=== PATIENT | male | born 1945 | race Two or more races ===

== ENCOUNTER 2022-10-03 23:55 | Inpatient (IN) | payer MEDICARE, MEDICAID ==
[~2022-10-03] VITALS: Ht 170.2 cm; Wt 64.6 kg
[~2022-10-03 23:55] MED LIST: ASPI-543 PO; ATROVASTIN PO; DONE1TAB88 PO; MET50T PO; POTA-220 PO; RANI-226 PO; SODIUM BICARB PO; TAMS0.4C36 PO
[2022-10-04 00:25] VITALS: PULSE 68; RESP 16; O2SAT 98
[2022-10-04 01:41] LABS: Basophils # (auto) 0 10 ^3/uL (0-0.2); Basophils % (auto) 0.2 % (0.0-2.0); Eosinophils # (auto) 0 10 ^3/uL (0-0.8); Eosinophils % (auto) 0.2 % (0.0-7.0); Hemoglobin 14.1 g/dL (13.5-17.5); Lymphocytes # (auto) 0.7 10 ^3/uL (0.4-5.4); Lymphocytes % (auto) 4.7 % (10.0-50.0); Mean Corpuscular Hemoglobin 29.9 pg (28.0-32.0); Mean Corpuscular Hgb Conc. 32.8 g/dL (32.0-36.0); Mean Corpuscular Volume 91.2 fL (80.0-100.0); Monocytes % (auto) 6.7 % (0.0-12.0); Neutrophils # (auto) 12.8 10 ^3/uL (1.6-8.6); Neutrophils % (auto) 88.2 % (37.0-80.0); Red Blood Cells 4.72 10^6/uL (4.5-5.90); Red Cell Distribution Width 15.2 % (11.8-14.3); White Blood Cell 14.5 10^3/uL (4.4-10.8)
[2022-10-04 02:07] LABS: Lactic Acid w/Reflex 3.3 mmol/L (0.4-2.0)
[2022-10-04] MEDS ORDERED: HALOPERIDOL LACTATE 5 MG/ML INJ VIAL ONE (02:55)
[2022-10-04] MEDS ORDERED: diphenhdrAMINE HCL 50 MG/1 ML VL ONE (02:55)
[2022-10-04 02:56] LABS: Alanine Aminotransferase 17 U/L (7-40); Albumin 4.5 g/dL (3.2-4.8); Alkaline Phosphatase 162 U/L (46-116); Anion Gap 13.4 (5-15); Aspartate Aminotransferase 14 U/L (13-40); BUN/Creatinine Ratio 13.8 (10.0-20.0); Blood Urea Nitrogen 16 mg/dL (9-23); Calcium 9.4 mg/dL (8.7-10.4); Carbon Dioxide 21.6 mmol/L (20-30); Chloride 109 mmol/L (98-107); Glucose 161 mg/dL (74-106); Sodium 144 mmol/L (136-145)
[2022-10-04 02:57] LABS: Bilirubin, Total 0.4 mg/dL (0.2-1.0)
[2022-10-04] MEDS ORDERED: HALOPERIDOL LACTATE 5 MG/ML INJ VIAL IM ONE (03:15)
[2022-10-04] MEDS ORDERED: diphenhdrAMINE HCL 50 MG/1 ML VL IV ONE (03:15)
[2022-10-04] MEDS ORDERED: LACTATED RINGER'S 2,300 ML IV ONE ×2 (03:30→05:45)
[2022-10-04] MEDS ORDERED: PIPERACILLIN-TAZOB 3.375GM 100 ML IV ONE (03:30)
[2022-10-04] MEDS ORDERED: VANCOMYCIN 1GM/250ML 250 ML IV ONE (03:30)
[2022-10-04] MEDS ORDERED: ONDANSETRON HCL 4 MG/2 ML VIAL IV PRN (05:30)
[2022-10-04] MEDS ORDERED: LORazepam 2MG/ML-1ML VIAL IV PRN (05:30)
[2022-10-04] MEDS ORDERED: MORPHINE SULFATE INJ 2 MG/ml SYRG IV PRN (05:30)
[2022-10-04] MEDS ORDERED: ACETAMINOPHEN 325 MG TAB PO PRN (05:30)
[2022-10-04] MEDS ORDERED: NITROGLYCERIN 0.4 MG SL TAB SL PRN (05:30)
[2022-10-04 07:04] LABS: Urine Bacteria NONE SEEN /hpf (None Seen); Urine Blood Negative /uL (Negative); Urine Clarity Clear (Clear); Urine Color Yellow (Yellow); Urine Protein, UAD TRACE (Negative); Urine Specific Gravity 1.018 (1.001-1.035); Urine Urobilinogen Normal (Negative); Urine WBC 1 /hpf (0 - 3); Urine pH 5.5 (5.0-8.0)
[2022-10-04 07:35] VITALS: PULSE 81; RESP 12; O2SAT 98
[2022-10-04] MEDS: cefTRIAXone 1GM/50ML D5W 50 ML IV SCH (09:38)
[2022-10-04] MEDS ORDERED: LISINOPRIL 5 MG TAB PO SCH (10:00)
[2022-10-04] MEDS ORDERED: METOPROLOL TARTRATE 25 MG TAB PO SCH (10:00)
[2022-10-04] MEDS: MEMANTINE HCL 5 MG TAB PO SCH ×2 (10:11→22:27)
[2022-10-04] MEDS: ENOXAPARIN SOD 40 MG/0.4 ML SYRINGE SC SCH (10:12)
[2022-10-04] MEDS: hydrALAZINE HCL 20 MG/ML VL IV PRN (12:49)
[2022-10-04] MEDS: LISINOPRIL 20 MG TAB PO SCH (13:26)
[2022-10-04] MEDS: metroNIDAZOLE 500MG/100ML 100 ML IV SCH ×2 (14:11→22:27)
[2022-10-04] MEDS ORDERED: HYDROcodone-ACET 5/325MG TAB PO PRN (14:30)
[2022-10-04] MEDS ORDERED: LABETALOL HCL 5 MG/ML 4ML SYRINGE IV PRN (14:30)
[2022-10-04] MEDS: MORPHINE SULFATE INJ 2 MG/ml SYRG IV PRN ×2 (14:37→15:05)
[2022-10-04 17:34] LABS: Folate (Folic Acid) > 24.00 ng/mL (>5.38)
[2022-10-04] MEDS: TAMSULOSIN HYDROCHLORIDE 0.4 MG CAP PO SCH (18:00)
[2022-10-04 19:55] VITALS: PULSE 61; RESP 10; O2SAT 98
[2022-10-04] MEDS: METOPROLOL TARTRATE 25 MG TAB PO SCH (22:00)
[2022-10-04] MEDS: ATORVASTATIN 20 MG TAB PO SCH (22:27)
[2022-10-04] MEDS: DONEPEZIL HYDROCHLORIDE 5 MG TAB PO SCH (22:27)
[2022-10-04] MEDS: PANTOPRAZOLE 40 MG TAB PO SCH (22:31)
[2022-10-04 23:00] VITALS: BP 125/64; PULSE 55; RESP 16; TEMP 99.3; O2SAT 95
[2022-10-04] MEDS ORDERED: MEMA1TAB5 PO (23:31)
[2022-10-04] MEDS ORDERED: RIVA1DIS3 TD (23:33)
[2022-10-05] VITALS (8 sets, daily range): BP systolic 102–159; BP diastolic 51–91; PULSE 49–99; RESP 14–18; TEMP 98.2–99.3; O2SAT 95–98
[2022-10-05] MEDS: metroNIDAZOLE 500MG/100ML 100 ML IV SCH (05:18)
[2022-10-05 05:57] LABS: INR 1.09 (0.9-1.15); Prothrombin Time 11.4 sec (9.3-11.8)
[2022-10-05 06:00] LABS: Alanine Aminotransferase 17 U/L (7-40); Albumin 3.6 g/dL (3.2-4.8); Alkaline Phosphatase 128 U/L (46-116); Anion Gap 7.1 (5-15); Aspartate Aminotransferase 33 U/L (13-40); BUN/Creatinine Ratio 14.9 (10.0-20.0); Blood Urea Nitrogen 13 mg/dL (9-23); Calcium 8.6 mg/dL (8.5-10.1); Carbon Dioxide 25.9 mmol/L (20-30); Chloride 112 mmol/L (98-107); Cholesterol 132 mg/dL (< 200); Glucose 90 mg/dL (74-106); HDL Cholesterol 48 mg/dL (40-59); LDL Cholesterol 75 mg/dL (< 100); Magnesium 2.2 mg/dL (1.6-2.6); Potassium 3.8 mmol/L (3.5-5.1); Sodium 145 mmol/L (136-145); Triglycerides 62 mg/dL (< 150)
[2022-10-05 06:01] LABS: Basophils # (auto) 0 10 ^3/uL (0-0.2); Basophils % (auto) 0.2 % (0.0-2.0); Bilirubin, Total 0.7 mg/dL (0.2-1.0); Eosinophils # (auto) 0 10 ^3/uL (0-0.8); Eosinophils % (auto) 0.3 % (0.0-7.0); Hematocrit 36.9 % (41.0-53.0); Hemoglobin 12.7 g/dL (13.5-17.5); Lymphocytes % (auto) 11.7 % (10.0-50.0); Mean Corpuscular Hemoglobin 30.9 pg (28.0-32.0); Mean Corpuscular Hgb Conc. 34.5 g/dL (32.0-36.0); Mean Corpuscular Volume 89.7 fL (80.0-100.0); Monocytes # (auto) 0.7 10 ^3/uL (0-1.3); Monocytes % (auto) 8.4 % (0.0-12.0); Neutrophils # (auto) 6.7 10 ^3/uL (1.6-8.6); Neutrophils % (auto) 79.4 % (37.0-80.0); Red Blood Cells 4.12 10^6/uL (4.5-5.90); Red Cell Distribution Width 14.9 % (11.8-14.3); Total Protein 5.7 g/dL (5.7-8.2); White Blood Cell 8.5 10^3/uL (4.4-10.8)
[2022-10-05] MEDS: METOPROLOL TARTRATE 25 MG TAB PO SCH ×2 (10:00→22:08)
[2022-10-05] MEDS ORDERED: METOPROLOL TARTRATE 25 MG TAB PO SCH (10:00)
[2022-10-05] MEDS: ENOXAPARIN SOD 40 MG/0.4 ML SYRINGE SC SCH (10:53)
[2022-10-05] MEDS: cefTRIAXone 1GM/50ML D5W 50 ML IV SCH (10:53)
[2022-10-05] MEDS: MEMANTINE HCL 5 MG TAB PO SCH ×2 (10:54→22:04)
[2022-10-05] MEDS: LISINOPRIL 20 MG TAB PO SCH (10:54)
[2022-10-05] MEDS: PANTOPRAZOLE 40 MG TAB PO SCH (10:55)
[2022-10-05] MEDS ORDERED: MANNITOL FTV 25% 12.5 GM/50 ML 50 ML IV ONE (14:15)
[2022-10-05] MEDS: SODIUM CHLORIDE 0.9% 1,000 ML IV SCH (16:38)
[2022-10-05] MEDS: TAMSULOSIN HYDROCHLORIDE 0.4 MG CAP PO SCH (18:10)
[2022-10-05] MEDS: hydrALAZINE HCL 20 MG/ML VL IV PRN (18:11)
[2022-10-05] MEDS: ATORVASTATIN 20 MG TAB PO SCH (22:04)
[2022-10-05] MEDS: DONEPEZIL HYDROCHLORIDE 5 MG TAB PO SCH (22:04)
[2022-10-06] VITALS (7 sets, daily range): BP systolic 119–167; BP diastolic 56–76; PULSE 58–99; RESP 13–18; TEMP 98–98.3; O2SAT 9–99
[2022-10-06] MEDS: SODIUM CHLORIDE 0.9% 1,000 ML IV SCH ×2 (03:35→16:55)
[2022-10-06 06:39] LABS: Anion Gap 6.7 (5-15); Carbon Dioxide 24.3 mmol/L (20-30); Chloride 113 mmol/L (98-107); Potassium 3.4 mmol/L (3.5-5.1); Sodium 144 mmol/L (136-145)
[2022-10-06 06:40] LABS: Basophils # (auto) 0 10 ^3/uL (0-0.2); Basophils % (auto) 0.4 % (0.0-2.0); Calcium 8.4 mg/dL (8.5-10.1); Eosinophils # (auto) 0 10 ^3/uL (0-0.8); Eosinophils % (auto) 0.7 % (0.0-7.0); Hematocrit 36.3 % (41.0-53.0); Hemoglobin 12.3 g/dL (13.5-17.5); Lymphocytes % (auto) 16.5 % (10.0-50.0); Mean Corpuscular Hemoglobin 30.7 pg (28.0-32.0); Mean Corpuscular Volume 90.4 fL (80.0-100.0); Monocytes # (auto) 0.5 10 ^3/uL (0-1.3); Monocytes % (auto) 8.9 % (0.0-12.0); Neutrophils # (auto) 4.5 10 ^3/uL (1.6-8.6); Neutrophils % (auto) 73.5 % (37.0-80.0); Nucleated Red Blood Cells % 0.1 %; Red Blood Cells 4.02 10^6/uL (4.5-5.90); Red Cell Distribution Width 15.3 % (11.8-14.3); White Blood Cell 6.2 10^3/uL (4.4-10.8)
[2022-10-06 06:45] LABS: BUN/Creatinine Ratio 15.6 (10.0-20.0); Blood Urea Nitrogen 12 mg/dL (9-23); Glucose 97 mg/dL (74-106)
[2022-10-06] MEDS ORDERED: POTASSIUM EFFERVESENT TAB 25 MEQ PO ONE (07:00)
[2022-10-06] MEDS: cefTRIAXone 1GM/50ML D5W 50 ML IV SCH (08:37)
[2022-10-06 09:43] LABS: Amphetamine Screen, Urine Neg (NEGATIVE)
[2022-10-06 09:44] LABS: Barbiturate Scree,Urine Neg (NEGATIVE); Benzodiazephine Screen, Urine Neg (NEGATIVE); Cocaine Screen, Urine Neg (NEGATIVE); Opiate Scree,Urine Neg (NEGATIVE)
[2022-10-06 09:45] LABS: Cannabinoid Screen, Urine Neg (NEGATIVE); Phencyclidine Screen, Urine Neg (NEGATIVE)
[2022-10-06] MEDS: ENOXAPARIN SOD 40 MG/0.4 ML SYRINGE SC SCH (11:03)
[2022-10-06] MEDS: MEMANTINE HCL 5 MG TAB PO SCH ×2 (11:03→21:27)
[2022-10-06] MEDS: METOPROLOL TARTRATE 25 MG TAB PO SCH ×2 (11:04→22:43)
[2022-10-06] MEDS: LISINOPRIL 20 MG TAB PO SCH (11:04)
[2022-10-06] MEDS: PANTOPRAZOLE 40 MG TAB PO SCH (11:04)
[2022-10-06] MEDS: hydrALAZINE HCL 20 MG/ML VL IV PRN (17:15)
[2022-10-06] MEDS: TAMSULOSIN HYDROCHLORIDE 0.4 MG CAP PO SCH (17:15)
[2022-10-06] MEDS: ATORVASTATIN 20 MG TAB PO SCH (21:27)
[2022-10-06] MEDS: DONEPEZIL HYDROCHLORIDE 5 MG TAB PO SCH (21:29)
[2022-10-07] VITALS (7 sets, daily range): BP systolic 140–168; BP diastolic 70–85; PULSE 54–100; RESP 16–18; TEMP 97.5–98.3; O2SAT 95–100
[2022-10-07 05:59] LABS: Basophils # (auto) 0 10 ^3/uL (0-0.2); Basophils % (auto) 0.5 % (0.0-2.0); Eosinophils # (auto) 0.2 10 ^3/uL (0-0.8); Eosinophils % (auto) 2.4 % (0.0-7.0); Hematocrit 36.5 % (41.0-53.0); Hemoglobin 12.2 g/dL (13.5-17.5); Lymphocytes # (auto) 1.3 10 ^3/uL (0.4-5.4); Lymphocytes % (auto) 19.4 % (10.0-50.0); Mean Corpuscular Hemoglobin 30.4 pg (28.0-32.0); Mean Corpuscular Hgb Conc. 33.6 g/dL (32.0-36.0); Mean Corpuscular Volume 90.6 fL (80.0-100.0); Monocytes # (auto) 0.6 10 ^3/uL (0-1.3); Monocytes % (auto) 8.5 % (0.0-12.0); Neutrophils # (auto) 4.7 10 ^3/uL (1.6-8.6); Neutrophils % (auto) 69.2 % (37.0-80.0); Red Blood Cells 4.03 10^6/uL (4.5-5.90); Red Cell Distribution Width 15.3 % (11.8-14.3); White Blood Cell 6.8 10^3/uL (4.4-10.8)
[2022-10-07] MEDS: SODIUM CHLORIDE 0.9% 1,000 ML IV SCH ×2 (06:06→19:35)
[2022-10-07 06:13] LABS: Alanine Aminotransferase 16 U/L (7-40); Albumin 3.5 g/dL (3.2-4.8); Alkaline Phosphatase 115 U/L (46-116); Anion Gap 5.2 (5-15); Aspartate Aminotransferase 18 U/L (13-40); BUN/Creatinine Ratio 15.1 (10.0-20.0); Blood Urea Nitrogen 13 mg/dL (9-23); Calcium 8.3 mg/dL (8.7-10.4); Carbon Dioxide 23.8 mmol/L (20-30); Chloride 113 mmol/L (98-107); Glucose 93 mg/dL (74-106); Magnesium 1.9 mg/dL (1.6-2.6); Potassium 3.6 mmol/L (3.5-5.1); Sodium 142 mmol/L (136-145)
[2022-10-07 06:14] LABS: Bilirubin, Total 0.7 mg/dL (0.2-1.0); Total Protein 5.5 g/dL (5.7-8.2)
[2022-10-07] MEDS: METOPROLOL TARTRATE 25 MG TAB PO SCH ×2 (10:00→21:17)
[2022-10-07] MEDS: ENOXAPARIN SOD 40 MG/0.4 ML SYRINGE SC SCH (10:11)
[2022-10-07] MEDS: cefTRIAXone 1GM/50ML D5W 50 ML IV SCH (10:11)
[2022-10-07] MEDS: MEMANTINE HCL 5 MG TAB PO SCH ×2 (10:12→21:17)
[2022-10-07] MEDS: PANTOPRAZOLE 40 MG TAB PO SCH (10:12)
[2022-10-07] MEDS: LISINOPRIL 20 MG TAB PO SCH (10:15)
[2022-10-07] MEDS ORDERED: VANCOMYCIN 1GM/250ML 250 ML IV ONE (11:45)
[2022-10-07] MEDS ORDERED: VANCOMYCIN PER PHARMACY 0 MG IV SCH (11:45)
[2022-10-07] MEDS: hydrALAZINE HCL 20 MG/ML VL IV PRN (17:55)
[2022-10-07] MEDS: TAMSULOSIN HYDROCHLORIDE 0.4 MG CAP PO SCH (17:55)
[2022-10-07] MEDS: DONEPEZIL HYDROCHLORIDE 5 MG TAB PO SCH (21:16)
[2022-10-07] MEDS: ATORVASTATIN 20 MG TAB PO SCH (21:16)
[2022-10-08] VITALS (7 sets, daily range): BP systolic 113–164; BP diastolic 51–83; PULSE 52–112; RESP 16–18; TEMP 97.6–99.3; O2SAT 95–97
[2022-10-08] MEDS ORDERED: VANCOMYCIN 1GM/250ML 250 ML IV SCH (05:00)
[2022-10-08 07:42] LABS: Basophils # (auto) 0.1 10 ^3/uL (0-0.2); Basophils % (auto) 0.7 % (0.0-2.0); Eosinophils # (auto) 0.1 10 ^3/uL (0-0.8); Hemoglobin 13.3 g/dL (13.5-17.5); Lymphocytes # (auto) 1.5 10 ^3/uL (0.4-5.4); Lymphocytes % (auto) 22.5 % (10.0-50.0); Mean Corpuscular Hemoglobin 30.6 pg (28.0-32.0); Mean Corpuscular Hgb Conc. 34.2 g/dL (32.0-36.0); Mean Corpuscular Volume 89.6 fL (80.0-100.0); Monocytes # (auto) 0.6 10 ^3/uL (0-1.3); Neutrophils # (auto) 4.4 10 ^3/uL (1.6-8.6); Neutrophils % (auto) 65.8 % (37.0-80.0); Nucleated Red Blood Cells % 0.1 %; Red Blood Cells 4.35 10^6/uL (4.5-5.90); Red Cell Distribution Width 15.2 % (11.8-14.3); White Blood Cell 6.7 10^3/uL (4.4-10.8)
[2022-10-08 08:13] LABS: Alanine Aminotransferase 22 U/L (7-40); Albumin 3.9 g/dL (3.2-4.8); Alkaline Phosphatase 130 U/L (46-116); Anion Gap 9.7 (5-15); Aspartate Aminotransferase 22 U/L (13-40); BUN/Creatinine Ratio 13.3 (10.0-20.0); Blood Urea Nitrogen 12 mg/dL (9-23); Calcium 8.8 mg/dL (8.5-10.1); Carbon Dioxide 21.3 mmol/L (20-30); Chloride 111 mmol/L (98-107); Glucose 122 mg/dL (74-106); Potassium 3.3 mmol/L (3.5-5.1); Sodium 142 mmol/L (136-145)
[2022-10-08 08:14] LABS: Bilirubin, Total 0.7 mg/dL (0.2-1.0); Total Protein 6.2 g/dL (5.7-8.2)
[2022-10-08] MEDS: MEMANTINE HCL 5 MG TAB PO SCH ×2 (09:41→22:32)
[2022-10-08] MEDS: PANTOPRAZOLE 40 MG TAB PO SCH (09:41)
[2022-10-08] MEDS: cefTRIAXone 1GM/50ML D5W 50 ML IV SCH (09:41)
[2022-10-08] MEDS: SODIUM CHLORIDE 0.9% 1,000 ML IV SCH (09:42)
[2022-10-08] MEDS: ENOXAPARIN SOD 40 MG/0.4 ML SYRINGE SC SCH (09:42)
[2022-10-08] MEDS: METOPROLOL TARTRATE 25 MG TAB PO SCH ×2 (09:45→22:31)
[2022-10-08] MEDS: LISINOPRIL 20 MG TAB PO SCH (09:46)
[2022-10-08] MEDS ORDERED: POTASSIUM EFFERVESENT TAB 25 MEQ PO ONE (12:00)
[2022-10-08] MEDS: ceFAZolin 1GM/50ML 50 ML IV SCH ×2 (15:39→22:32)
[2022-10-08] MEDS: hydrALAZINE HCL 20 MG/ML VL IV PRN (15:48)
[2022-10-08] MEDS: TAMSULOSIN HYDROCHLORIDE 0.4 MG CAP PO SCH (17:23)
[2022-10-08] MEDS: DONEPEZIL HYDROCHLORIDE 5 MG TAB PO SCH (22:30)
[2022-10-08] MEDS: ATORVASTATIN 20 MG TAB PO SCH (22:31)
[2022-10-09 05:00] VITALS: BP_SYST 141; BP_SYST 160; BP_DIAS 64; BP_DIAS 79; PULSE 63; PULSE 66; RESP 17; TEMP 98.1; O2SAT 97
[2022-10-09] MEDS: ceFAZolin 1GM/50ML 50 ML IV SCH ×2 (05:16→15:13)
[2022-10-09 08:00] VITALS: PULSE 57; PULSE 73; RESP 16
[2022-10-09 09:00] VITALS: BP 162/82; PULSE 57; RESP 17; TEMP 97.8; O2SAT 93
[2022-10-09] MEDS: METOPROLOL TARTRATE 25 MG TAB PO SCH (09:36)
[2022-10-09] MEDS: MEMANTINE HCL 5 MG TAB PO SCH (09:37)
[2022-10-09] MEDS: LISINOPRIL 20 MG TAB PO SCH ×2 (09:37→10:00)
[2022-10-09] MEDS: ENOXAPARIN SOD 40 MG/0.4 ML SYRINGE SC SCH (09:37)
[2022-10-09] MEDS: PANTOPRAZOLE 40 MG TAB PO SCH (09:37)
[2022-10-09 10:26] LABS: Basophils # (auto) 0 10 ^3/uL (0-0.2); Basophils % (auto) 0.7 % (0.0-2.0); Eosinophils # (auto) 0.3 10 ^3/uL (0-0.8); Eosinophils % (auto) 4.6 % (0.0-7.0); Hematocrit 39.7 % (41.0-53.0); Hemoglobin 13.2 g/dL (13.5-17.5); Lymphocytes # (auto) 1.1 10 ^3/uL (0.4-5.4); Mean Corpuscular Hgb Conc. 33.3 g/dL (32.0-36.0); Mean Corpuscular Volume 90.2 fL (80.0-100.0); Monocytes # (auto) 0.5 10 ^3/uL (0-1.3); Monocytes % (auto) 6.9 % (0.0-12.0); Neutrophils # (auto) 4.9 10 ^3/uL (1.6-8.6); Neutrophils % (auto) 71.8 % (37.0-80.0); Red Blood Cells 4.41 10^6/uL (4.5-5.90); Red Cell Distribution Width 14.8 % (11.8-14.3); White Blood Cell 6.9 10^3/uL (4.4-10.8)
[2022-10-09 10:59] LABS: Alanine Aminotransferase 31 U/L (7-40); Albumin 3.9 g/dL (3.2-4.8); Alkaline Phosphatase 131 U/L (46-116); Anion Gap 5.3 (5-15); Aspartate Aminotransferase 30 U/L (13-40); BUN/Creatinine Ratio 11.6 (10.0-20.0); Bilirubin, Total 0.7 mg/dL (0.2-1.0); Blood Urea Nitrogen 11 mg/dL (9-23); Calcium 8.8 mg/dL (8.5-10.1); Carbon Dioxide 25.7 mmol/L (20-30); Chloride 110 mmol/L (98-107); Glucose 160 mg/dL (74-106); Potassium 3.4 mmol/L (3.5-5.1); Sodium 141 mmol/L (136-145); Total Protein 6.3 g/dL (5.7-8.2)
[2022-10-09] MEDS: hydrALAZINE HCL 20 MG/ML VL IV PRN (12:48)
[2022-10-09 13:00] VITALS: BP 167/81; PULSE 58; RESP 17; TEMP 97.8; O2SAT 99
[2022-10-09] MEDS ORDERED: POTASSIUM EFFERVESENT TAB 25 MEQ PO ONE (13:45)
[2022-10-09 14:55] VITALS: BP 144/68; PULSE 72
[2022-10-09] MEDS ORDERED: RIVASTIGMINE 13.3 MG/24 HR TD SCH ×2 (15:00)
[2022-10-09] MEDS ORDERED: QUET50TA PO (15:17)
[2022-10-09] MEDS ORDERED: MET25T PO (15:17)
[2022-10-09] MEDS ORDERED: LISI20TA56 PO (15:17)
[2022-10-09 17:00] VITALS: BP 148/73; PULSE 74; RESP 17; TEMP 97.3; O2SAT 98
[2022-10-09] MEDS: TAMSULOSIN HYDROCHLORIDE 0.4 MG CAP PO SCH (18:36)
== END 2022-10-09 19:22 | disposition home health service (06) | DRG 871 ==
LOC: ER 23:55 → EDBD 23:55 → TELE 10-04 05:41 → TELE-E-ADS 10-04 21:25
PROVIDERS: ADMIT Internal Medicine; ATTEND Student in an Organized Health Care Education/Training Program
DX: A41.9 Sepsis, unspecified organism (principal); G93.41 Metabolic encephalopathy; N13.2 Hydronephrosis with renal and ureteral calculous obstruction; E87.20 Acidosis, unspecified; I69.354 Hemiplegia and hemiparesis following cerebral infarction affecting left non-dominant side; F03.90 Unspecified dementia, unspecified severity, without behavioral disturbance, psychotic disturbance, mood disturbance, and anxiety; F29 Unspecified psychosis not due to a substance or known physiological condition; I12.9 Hypertensive chronic kidney disease with stage 1 through stage 4 chronic kidney disease, or unspecified chronic kidney disease; R73.9 Hyperglycemia, unspecified; K21.9 Gastro-esophageal reflux disease without esophagitis; N18.2 Chronic kidney disease, stage 2 (mild); E78.5 Hyperlipidemia, unspecified; N40.0 Benign prostatic hyperplasia without lower urinary tract symptoms; E87.6 Hypokalemia; L72.3 Sebaceous cyst; Z78.1 Physical restraint status; Z83.3 Family history of diabetes mellitus
CPT/HCPCS: 36415; 70450; 71045; 74018; 74176; 76775; 80048; 80053; 80061; 80307; 81001; 82140; 82607; 82746; 82962; 83036; 83605; 83735; 84443; 84484; 85025; 85610; 87040; 87077; 87186; 93971; 96372; 97110; 97116; 97163; 97530; G0378; J0690; J0696; J2543; J3490